=== PATIENT | male | born 2000 | race Caucasian/White ===

== ENCOUNTER 2024-03-28 14:05 | Emergency (ER) | payer BC ==
[~2024-03-28] VITALS: Ht 177.8 cm
[2024-03-28] MEDS ORDERED: ALBUTEROL/IPRATROPIUM 3 ML NEB INH ONE (14:15)
[2024-03-28] MEDS ORDERED: VENTOLIN HFA18 GM INH (14:30)
[2024-03-28] MEDS ORDERED: AMOX TR-K CLV1 EAC1 PO (14:30)
[2024-03-28] MEDS ORDERED: PREDNISONE20 MG PO (14:30)
[2024-03-28] MEDS ORDERED: BENZONATATE100 MG PO (14:51)
[2024-03-28 15:05] VITALS: BP 111/75
== END 2024-03-28 15:06 | disposition home or self-care (01) ==
LOC: ED 14:05
DX: J06.9 Acute upper respiratory infection, unspecified (principal); J45.909 Unspecified asthma, uncomplicated; Z79.899 Other long term (current) drug therapy
CPT/HCPCS: 71045; 99283-25